=== PATIENT | female | born 1975 | race African-American/Black ===

== ENCOUNTER 2017-05-05 19:37 | Inpatient (IN) ==
[2017-05-05] MEDS ORDERED: HYDROmorphone 2 MG/1 ML VIAL IV STA (20:06)
[2017-05-05] MEDS ORDERED: PANTOPRAZOLE 40 MG VIAL IV STA (20:06)
[2017-05-05] MEDS ORDERED: SODIUM CHLORIDE 0.9% 1,000 ML IV STA (20:06)
[2017-05-05] MEDS ORDERED: ONDANSETRON 4 MG/2 ML VIAL IV STA (20:06)
[2017-05-05 21:59] LABS: Apearance,Urine Slightly Hazy (Clear); Bilirubin,Urine Negative (Negative); Blood, Urine Negative (Negative); Glucose,Urine (UA) 50 mg/dL (Negative); Hyaline Casts,Urine 5 /LPF (0-3); Ketones,Urine 5 mg/dL (Negative); Mucus,Urine Occasional /LPF (Occasional); Nitrite,Urine Negative (Negative); Protein,Urine 30 MG/DL; RBC,Urine 2 /HPF (0-4); Squamous Epithelial Cell,Urine Occasional /HPF (0-10); Urine Color Yellow (Yellow); Urine Specific Gravity 1.018 (1.001-1.035); Urine Urobilinogen < 2.0 EU/DL (0.2-1.0); WBC,Urine 1 /HPF (0-6)
[2017-05-05] MEDS ORDERED: HYDROmorphone 2 MG/1 ML VIAL ONE (22:21)
[2017-05-05] MEDS ORDERED: PANTOPRAZOLE 40 MG VIAL IV ONE (22:21)
[2017-05-05] MEDS ORDERED: ONDANSETRON 4 MG/2 ML VIAL ONE (22:21)
[2017-05-05 22:32] LABS: Basophils % 0.3 % (0.0-0.8); Eosinophils % 0.1 % (0.00-10.9); Hematocrit 29.5 VOL% (35.7-47.0); Hemoglobin 9.5 GM/DL (12.0-16.0); Immature Granulocytes % 0.5 %; Immature Granulocytes Absolute 0.08 #; Lymphocytes % 13.5 % (21.3-54.2); Mean Corpuscular HGB Conc 32.2 GM/DL (32-36); Mean Corpuscular Hemoglobin 27 PG (27-34); Mean Corpuscular Volume 83.1 FL (87-102); Mean Platelet Volume 9.2 FL (9.6-12.0); Monocytes # 0.6 10*3/uL (0.11-0.8); Monocytes % 4.1 % (1.7-12.7); NRBC # 0.02 10*3/uL; Neutrophils % 81.5 % (38.7-73.9); Platelet Count 830 T/CUMM (130-400); Red Blood Count 3.55 MC/CUMM (3.8-5.5); Red Cell Distribution Width 18.8 % (9.3-17.3); White Blood Count 14.7 T/CUMM (4-12)
[2017-05-05 22:57] LABS: Alanine Aminotransferase 22 U/L (13-56); Albumin 3.9 G/DL (3.4-5.0); Alkaline Phosphatase 118 U/L (45-117); Amylase 88 U/L (25-115); Aspartate Amino Transferase 11 U/L (0-37); Bilirubin,Total < 0.39 MG/DL (0.2-1.0); Blood Urea Nitrogen 5 MG/DL (7-18); Calcium 9.6 MG/DL (8.5-10.1); Glucose 127 MG/DL (74-106); Osmolality,Calculated 273.7 MOS/KG (273-304); Potassium 4.3 MMOL/L (3.5-5.1); Sodium 138 MMOL/L (136-145); Troponin I Only < 0.015 NG/ML (0.00-0.045)
[2017-05-06] MEDS ORDERED: PIPERACILLIN/TAZOBACTAM 3,375 MG in SODIUM CHLORIDE 0.9% 100 ML IV STA (00:11)
[2017-05-06] MEDS ORDERED: hydrALAZINE 20 MG/1 ML VIAL ONE (00:17)
[2017-05-06] MEDS ORDERED: PIPERACILLIN/TAZOBACTAM 3,375 MG VIAL IV ONE (00:17)
[2017-05-06] MEDS ORDERED: SODIUM CHLORIDE 0.9% 100 ML IV ONE (00:18)
[2017-05-06] MEDS ORDERED: HYDROmorphone 2 MG/1 ML VIAL IM STA (02:42)
[2017-05-06 03:20] LABS: Barbiturates Screen,Urine Negative (Negative); Benzodiazepines Screen,Urine Negative (Negative); Cannabinoid Screen,Urine Negative (Negative); Opiate Screen,Urine Positive (Negative); Phencyclidine Screen,Urine Negative (Negative)
[2017-05-06] MEDS ORDERED: ONDANSETRON 4 MG/2 ML VIAL IV PRN (03:20)
[2017-05-06] MEDS: PIPERACILLIN/TAZOBACTAM 3,375 MG in SODIUM CHLORIDE 0.9% 100 ML IV SCH ×3 (10:46→17:46)
[2017-05-06] MEDS: PANTOPRAZOLE 40 MG TABLET PO SCH (10:46)
[2017-05-06] MEDS: SODIUM CHLORIDE 0.9% 1,000 ML IV SCH ×2 (10:47→15:05)
[2017-05-06] MEDS: POLYETHYLENE GLYCOL POWDER 255 GM BOTTLE PO ONE ×2 (15:05→16:50)
[2017-05-06] MEDS: BISACODYL 5 MG TABLET PO SCH ×2 (15:05→22:11)
[2017-05-06] MEDS: oxyCODONE/ACETAMINOPHEN 5-325 MG TABLET PO PRN (17:34)
[2017-05-06] MEDS ORDERED: MAGNESIUM CITRATE 300 ML BOTTLE PO ONE (21:00)
[2017-05-06] MEDS: LISINOPRIL 20 MG TABLET PO SCH (21:27)
[2017-05-06] MEDS: METOPROLOL TARTRATE 50 MG TABLET PO SCH (21:29)
[2017-05-06] MEDS ORDERED: KETOROLAC 15 MG/1 ML VIAL IV ONE (23:30)
[2017-05-07] MEDS: PIPERACILLIN/TAZOBACTAM 3,375 MG in SODIUM CHLORIDE 0.9% 100 ML IV SCH ×3 (06:25→23:53)
[2017-05-07] MEDS ORDERED: KETOROLAC 15 MG/1 ML VIAL IV ONE (06:30)
[2017-05-07 06:40] LABS: Basophils % 0.3 % (0.0-0.8); Eosinophils # 0.2 10*3/uL (0.0-0.87); Eosinophils % 1.1 % (0.00-10.9); Hematocrit 30.7 VOL% (35.7-47.0); Hemoglobin 9.7 GM/DL (12.0-16.0); Immature Granulocytes % 0.4 %; Immature Granulocytes Absolute 0.05 #; Lymphocytes # 3.4 10*3/uL (1.4-4.0); Lymphocytes % 24.9 % (21.3-54.2); Mean Corpuscular HGB Conc 31.6 GM/DL (32-36); Mean Corpuscular Hemoglobin 26 PG (27-34); Mean Corpuscular Volume 83.7 FL (87-102); Mean Platelet Volume 9.1 FL (9.6-12.0); Monocytes # 0.8 10*3/uL (0.11-0.8); Neutrophils # 9.1 10*3/uL (1.4-7.4); Neutrophils % 67.3 % (38.7-73.9); Platelet Count 837 T/CUMM (130-400); Red Blood Count 3.67 MC/CUMM (3.8-5.5); Red Cell Distribution Width 18.8 % (9.3-17.3); White Blood Count 13.5 T/CUMM (4-12)
[2017-05-07 07:09] LABS: Albumin 3.6 G/DL (3.4-5.0); Bilirubin,Total 0.5 MG/DL (0.2-1.0); Calcium 9.3 MG/DL (8.5-10.1); Osmolality,Calculated 278.3 MOS/KG (273-304); Potassium 3.9 MMOL/L (3.5-5.1); Total Protein 7.3 G/DL (6.4-8.3)
[2017-05-07] MEDS ORDERED: PROMETHAZINE INJ 25 MG in SODIUM CHLORIDE 0.9% 50 ML IV PRN (08:36)
[2017-05-07] MEDS ORDERED: POLYETHYLENE GLYCOL POWDER 255 GM BOTTLE NG ONE (09:00)
[2017-05-07] MEDS: BISACODYL 5 MG TABLET PO SCH (10:30)
[2017-05-07] MEDS ORDERED: PROPOFOL 200 MG/20 ML VIAL IV ONE (12:30)
[2017-05-07] MEDS ORDERED: LIDOCAINE 2% 5 ML VIAL ONE (12:30)
[2017-05-07] MEDS: PANTOPRAZOLE 40 MG TABLET PO SCH (13:56)
[2017-05-07] MEDS: METOPROLOL TARTRATE 50 MG TABLET PO SCH ×2 (13:56→21:53)
[2017-05-07] MEDS: LISINOPRIL 20 MG TABLET PO SCH ×2 (13:57→21:54)
[2017-05-07] MEDS: POTASSIUM CHLORIDE 20 MEQ TABLET PO SCH (13:57)
[2017-05-07] MEDS: HYDROmorphone 2 MG/1 ML VIAL IV PRN ×2 (14:46→19:54)
[2017-05-07] MEDS: SODIUM CHLORIDE 0.9% 1,000 ML IV SCH (14:49)
[2017-05-07] MEDS ORDERED: ZALEPLON 5 MG CAPSULE PO SCH (21:00)
[2017-05-08] MEDS: HYDROmorphone 2 MG/1 ML VIAL IV PRN (03:43)
[2017-05-08] MEDS: PIPERACILLIN/TAZOBACTAM 3,375 MG in SODIUM CHLORIDE 0.9% 100 ML IV SCH (06:41)
[2017-05-08] MEDS: SODIUM CHLORIDE 0.9% 1,000 ML IV SCH ×2 (06:42→06:43)
[2017-05-08] MEDS ORDERED: LIDOCAINE 2% 5 ML VIAL ONE (08:03)
[2017-05-08] MEDS ORDERED: PROPOFOL 200 MG/20 ML VIAL IV ONE (08:03)
[2017-05-08] MEDS: METOPROLOL TARTRATE 50 MG TABLET PO SCH (10:24)
[2017-05-08] MEDS: POTASSIUM CHLORIDE 20 MEQ TABLET PO SCH (10:24)
[2017-05-08] MEDS: PANTOPRAZOLE 40 MG TABLET PO SCH (10:25)
[2017-05-08] MEDS: LISINOPRIL 20 MG TABLET PO SCH (10:25)
[2017-05-08] MEDS: oxyCODONE/ACETAMINOPHEN 5-325 MG TABLET PO PRN (10:28)
[2017-05-08 10:30] VITALS: BP 138/79
== END 2017-05-08 11:10 | disposition home or self-care (01) | DRG 392 ==
LOC: EDUNIT# → EDBD → N.ED 19:37 → N.EDINP 05-06 02:04 → N.2E 05-06 03:59
PROVIDERS: ADMIT Internal Medicine; ATTEND Internal Medicine
PROC: COLONBX (2017-05-07 08:05)